=== PATIENT | female | born 1955 | race Caucasian/White ===

== ENCOUNTER → 2017-05-23 | Outpatient (CLI) | payer BC, OTHER ==
[~2017-05-23] MED LIST: CELEBREX50 MG; CELEXA 10 MG TA10 M1; COZAAR 25 MG TA25 M2; HUMIRA20 MG/0.4; LISINOPRIL10 MG; PERCOCET 5-3251 EACH PO; ZOFRAN4 MG PO
== END ==
LOC: NUC 09:25
DX: M81.0 Age-related osteoporosis without current pathological fracture (principal); Z78.0 Asymptomatic menopausal state; Z87.81 Personal history of (healed) traumatic fracture